=== PATIENT | female | born 2000 | race Hispanic/Latino ===

== ENCOUNTER 2020-01-18 10:34 | Outpatient (CLI) | payer OTHER, SELFPAY ==
--- NOTE | ~2020-01-18 | US_ITS ---
EXAMINATION: US OB /maternal detail DATE: 01/18/2020 12:08 INDICATION: anatomic survey. TECHNIQUE: Real-time ultrasound of the pelvis was performed. COMPARISON: None. FINDINGS: There is a single living fetus in breech presentation. The placenta is posterior, 5.1 m from the cer vix. heart rate is 149 beats per minute (bpm). The amniotic fluid volume is subjectively normal . The following biometric data were obtained: Biparietal diameter (BPD): 4.5 cm; head circumference (HC): 18.3 cm; abdominal circumference (AC): 15 .2 cm; femur length (FL): 3.5 cm. These measurements are discordant with low cephalic index. Estimated weight is 370 g +/- 56 g, which correlates with 43rd percentile when 06/01/20 is used as estimated date of delivery. As single measurements, these parameters are each equal to the following estimated gestational ages: BPD: 19 weeks 4 days. HC: 20 weeks 5 days. AC: 20 weeks 3 days. FL: 21 weeks 1 days. estimated gestational age based solely on measurements from this exam is 20 weeks 3 days +/- 1 weeks 3 days. There are multiple bilateral choroid plexus cysts. The cerebral ventricles, cerebellum, cisterna magn a, nuchal fold, and visualized portions of the spine are normal. The heart is normal. The diaphragm, stomach, kidneys, and bladder are normal. There are two umbilical arteries to yield a 3-vessel cord. The cord insertion is normal. IMPRESSION: 1. Single living fetus in breech presentation. 2. Estimated weight is 370 g +/- 56 g, which correlates with 43rd percentile when 06/01/20 is used as estimated date of delivery. 3. Low cephalic index. 4. Choroid plexus cysts. Reviewed, dictated and finalized at location A. IMPRESSION: 1. Single living fetus in breech presentation. 2. Estimated weight is 370 g +/- 56 g, which correlates with 43rd percen tile when 06/01/20 is used as estimated date of delivery. 3. Low cephalic index. 4. Choroid plexus cysts.
== END 2020-01-18 10:35 | disposition home or self-care (01) ==
PROVIDERS: Visit Provider Obstetrics & Gynecology
DX: Z34.92 Encounter for supervision of normal pregnancy, unspecified, second trimester (principal); Z3A.20 20 weeks gestation of pregnancy
CPT/HCPCS: 76805

== ENCOUNTER 2020-05-25 05:52 | Inpatient (IN) | payer OTHER, SELFPAY ==
--- NOTE | 2020-05-24 21:16 | PM.IMHP ---
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 I explained her condition procedure risks she understands accepts and agrees to proceed Pitocin per protocol Review of Systems Review of Systems: All systems reviewed & are unremarkable except as noted in HPI and below Constitutional: Constitutional: Reports no additional constitutional complaints Eyes: Eyes: Reports no additional eye complaints ENT: Reports system reviewed and no additional complaints, except as documented Cardiovascular: Cardiovascular: Reports no additional cardiovascular complaints Respiratory: Respiratory: Reports no additional respiratory complaints Gastrointestinal: Gastrointestinal: Reports no additional gastrointestinal complaints Genitourinary: Genitourinary: Reports no additional female genitourinary complaints Musculoskeletal: Musculoskeletal: Reports no additional musculoskeletal complaints Integumentary/Breasts: Skin/Breast: Reports system reviewed and no additional complaints, except as docu Neurologic: Reports system reviewed and no additional complaints, except as documented Psychiatric: Psychiatric: Reports no additional psychiatric complaints Endocrine: Endocrine: Reports no additional endocrine complaints Hematologic/Lymphatic: Hematologic/Lymphatic: Reports no additional hematologic/lymphatic complaints Allergic/Immunologic: Allergic/Immunologic: Reports no additional allergic/immunologic complaints [facility] Past Medical History Medical History (Updated 05/24/20 @ 21:26 by Diego Medina MD) GBS carrier Homozygous MTHFR mutation [id number] Family History Family History (Updated 05/09/20 @ 14:34 by Shasha Arenas RN) Other Unknown family medical history Social History Social History (Updated 05/24/20 @ 21:22 by Diego Medina MD) Smoking status: Never smoker Second hand tobacco smoke exposure: No Alcohol intake: never Substance use: never Living arrangements: with family Occupation/Education: student Gender identity (if verbalized by the patient): Female Sexual Orientation (if Verbalized by the Patient): Straight or Heterosexual Spiritual care concerns: No Agree to blood products: Yes Meds Home Medications and Allergies Home Medications Medication Instructions Recorded Confirmed Type aspirin [Aspirin Low Dose] 81 mg PO DAILY 05/09/20 05/09/20 History calcium carbonate-vitamin D3 1 tablet PO DAILY 05/09/20 05/09/20 History [Calcium 600 + D(3)] prenat.vits,felicia,fiv-zwdn-izabx 1 tablet PO DAILY 05/09/20 05/09/20 History [ #2] progesterone micronized 400 mg PO DAILY 05/09/20 05/09/20 History Allergies Allergy/AdvReac Type Severity Reaction Status Date / Time No Known Allergies Allergy Verified 05/09/20 14:30 Exam Const: General: cooperative, healthy appearing, comfortable, no acute distress, well developed, alert, awake and Physically active Nutritional Appearance: average body habitus and well nourished Orientation/consciousness: patient oriented x3 Limitations: no limitations HENMT: Head: normal to inspection Eyes: General: appearance normal, both eyes and all related structures Neck: Neck: normal visual inspection and full ROM Chest: Chest palpation & inspection: normal inspection of the chest Breast/axilla inspection: normal inspection of the breasts Resp: Effort & Inspection: normal respiratory effort Auscultation: clear to auscultation bilaterally Cardio: Palpation: normal PMI Rate: regular rate Rhythm: regular rhythm GI: Inspection: normal to inspection GI Palp: Yes Soft to palpation : External Female Exam: normal external appearance Back/Spine/Pelvis: Back: no CVA tenderness Cervical S
--- NOTE | 2020-05-24 21:27 | WPDHPUPDATE1 ---
History and Physical Update Update Date/Time: 05/24/20 21:27 History and Physical has been reviewed, including an updated exam of the patient. There are NO changes in the patient's condition. Risks, benefits, and alternatives have been discussed and questions answered. Patient agrees to proceed with procedure. 19-year-old 39 weeks in for elective induction of labor with Pitocin GBS positive antibiotic prophylaxis will be given
--- NOTE | 2020-05-24 21:28 | WPDOBADMIT ---
Obstetrics - Admit Note Admission Note: record reviewed. No pertinent additions to the history and/or any subsequent changes in the physical findings that are not consistent with the expected course of the were found. Additions to the history and/or subsequent changes in the physical findings follow. None. 19-year-old female 2 para 1 at 39 weeks history of MTHFR homozygous and group B strep carrier in for elective induction of labor oxytocin per protocol informed consent obtained she understands maternal or indications for delivery with risk involved including but not limited to bleeding infection injury to bladder bowel baby pelvic vessels DVT pneumonia with infections and retracted UTI the risk of anesthesia she understands accepts and agrees to proceed
[2020-05-25] VITALS (66 sets, daily range): BP systolic 83–140; BP diastolic 47–108; PULSE 25–246; RESP 14–16; TEMP 36.5–37.1; O2SAT 79–100; BMI 29.4
[2020-05-25 06:31] LABS: Basophils Percent Auto 0.2 % (0.2-1.2); Eosinophils Percent Auto 0.5 % (0-4.4); Hematocrit 40.4 % (37.0-47.0); Hemoglobin 13.3 g/dL (12.0-15.0); Immature Granulocyte Absolute 0.06 K/mm3 (0.00-0.031); Immature Granulocyte Percent A 0.7 % (0-0.5); Lymphocytes Percent Auto 23.7 % (18.3-44.2); Mean Corpuscular HGB Conc 32.9 g/dl (32-36); Mean Corpuscular Hemoglobin 31.4 pg (26-34); Mean Corpuscular Volume 95.5 fl (80-100); Monocytes Absolute Auto 0.7 K/mm3 (0.1-0.6); Monocytes Percent Auto 7.7 % (2.6-8.5); Neutrophils Absolute Auto 5.7 K/mm3 (1.3-6.7); Neutrophils Percent Auto 67.2 % (45.5-73.1); Platelet Count Result 136 k/mm3 (150-375); Red Blood Count 4.23 M/mm3 (4.2-5.4); Red Cell Distribution Width 13.1 % (11.5-14.5); White Blood Count 8.4 K/mm3 (4.5-10.0)
[2020-05-25] MEDS: LACTATED RINGERS 1,000 ML 125 ML IV CONT ×2 (06:35→08:59)
[2020-05-25] MEDS: OXYTOCIN 30 UNITS/NS 500 ML 30 UNITS/500 ML BAG IV CONT (06:36)
[2020-05-25] MEDS: AMPICILLIN 2 GM/NS 100 ML 2 GM/100 ML BAG IVPB (06:36)
--- NOTE | 2020-05-25 06:39 | WPDANESEPP ---
Anes - Eval Pre Procedure Procedure: Labor epidural Date/Time: 05/25/20 06:39 Surgeon: Adam Preop Diagnosis: pain during labor Pre Op Diagnosis: Induction of Labor Patient Data Age: 19 Gender: F Height: Weight: Last Vital Signs Pulse 86 05/25/20 06:30 BP 113/71 05/25/20 06:30 Allergies Allergy/AdvReac Type Severity Reaction Status Date / Time No Known Allergies Allergy Verified 05/09/20 14:30 Home Medications Medication Instructions Recorded Confirmed Type aspirin [Aspirin Low Dose] 81 mg PO DAILY 05/09/20 05/09/20 History calcium carbonate-vitamin D3 1 tablet PO DAILY 05/09/20 05/09/20 History [Calcium 600 + D(3)] prenat.vits,felicia,exd-qwld-byzdc 1 tablet PO DAILY 05/09/20 05/09/20 History [ #2] progesterone micronized 400 mg PO DAILY 05/09/20 05/09/20 History Laboratory Tests 05/25/20 05/25/20 06:25 06:25 WBC 8.4 K/mm3 K/mm3 (4.5-10.0) RBC 4.23 M/mm3 M/mm3 (4.2-5.4) Hgb 13.3 g/dL g/dL (12.0-15.0) Hct 40.4 % % (37.0-47.0) MCV 95.5 fl fl (80-100) MCH 31.4 pg pg (26-34) MCHC 32.9 g/dl g/dl (32-36) RDW 13.1 % % (11.5-14.5) Plt Count 136 k/mm3 L k/mm3 (150-375) MPV 12.0 fl H fl (7.4-10.4) Immature Gran % (Auto) 0.7 % H % (0-0.5) Neut % (Auto) 67.2 % % (45.5-73.1) Lymph % (Auto) 23.7 % % (18.3-44.2) [place] % (Auto) 7.7 % % (2.6-8.5) Eos % (Auto) 0.5 % % (0-4.4) Baso % (Auto) 0.2 % % (0.2-1.2) Lymph # (Auto) 2.00 K/mm3 K/mm3 (0.9-3.2) [place] # (Auto) 0.7 K/mm3 H K/mm3 (0.1-0.6) Eos # (Auto) 0.0 K/mm3 K/mm3 (0-0.3) Baso # (Auto) 0.0 K/mm3 K/mm3 (0.0-0.1) Abs Immat Gran (auto) 0.06 K/mm3 H K/mm3 (0.00-0.031) Absolute Neuts (auto) 5.7 K/mm3 K/mm3 (1.3-6.7) Absolute Nucleated RBC 0.0 K/mm3 K/mm3 (0.0-0.012) Nucleated RBC % 0.0 % % (0.0-0.2) RPR Pending Patient hx anesthesia problems: none Family hx anesthesia problems: none [facility] Past Medical History Medical History (Updated 05/24/20 @ 21:26 by Diego Medina MD) GBS carrier Homozygous MTHFR mutation [id number] Family History Family History (Updated 05/09/20 @ 14:34 by Shasha Arenas RN) Other Unknown family medical history Social History Social History (Updated 05/24/20 @ 21:22 by Diego Medina MD) Smoking status: Never smoker Second hand tobacco smoke exposure: No Alcohol intake: never Substance use: never Living arrangements: with family Occupation/Education: student Gender identity (if verbalized by the patient): Female Sexual Orientation (if Verbalized by the Patient): Straight or Heterosexual Spiritual care concerns: No Agree to blood products: Yes Exam Day of Procedure 05/25/20 06:39
--- NOTE | 2020-05-25 06:43 | LDADM ---
This patient, Guillermina Salgado, was admitted to Labor/Delivery/Recovery 103 on 05/25/20 at 05:52. Plans for labor, pain management and were discussed with patient. Patient/family oriented to hospital policies and general routines including ID bracelet, bed and alarms, visiting hours, pain management, procedures, bathroom and other care routines, personal items, smoking policy, room service/diet and guest tray routines, infant security routines, and visiting hours. Patient/Family are encouraged to report perceived risks to care and to ask questions if they do not understand what they are told or what they should do. See OBIX for further documentation.
[2020-05-25 10:29] LABS: Amphetamine Screen Urine Negative (Negative); Barbiturate Screen Urine Negative (Negative); Benzodiazepines Screen Urine Negative (Negative); Cannabinoid Screen Urine Positive (Negative); Cocaine Screen Urine Negative (Negative); Methadone Screen Urine Negative (Negative); Opiate Screen Urine Negative (Negative); Phencyclidine Screen Urine Negative (Negative)
[2020-05-25] MEDS: AMPICILLIN 1 GM/NS 50 ML 1 GM/50 ML BAG IVPB (10:37)
--- NOTE | 2020-05-25 12:02 | PM.OBPNLAB ---
Pain Control Date/time seen: 05/25/20 0945 Pain control: epidural Pelvic Exam Dilation (cm): 5 Effacement (%): 100 station: -2 Amniotic membrane status: Bulging Contractions Monitor mode: External Contraction frequency: 2 Contraction duration: 45 Contraction pattern: Regular Contraction phase: Contraction Contraction intensity: Strong/Firm Status status: Category l Assessment and Plan Pitocin rate (mU/min): 8 Assessment: active labor and induction ongoing Plan: continuous present management
--- NOTE | 2020-05-25 12:03 | PM.OBPNLAB ---
Pain Control Date/time seen: 05/25/20 11:08 Pain control: tolerating well and epidural Pelvic Exam Dilation (cm): 10 Effacement (%): 100 station: 0 Amniotic membrane status: Bulging Contractions Monitor mode: External Contraction frequency: 2 Contraction pattern: Regular Contraction phase: Contraction Contraction intensity: Strong/Firm Status status: Category l Assessment and Plan Pitocin rate (mU/min): 8 Assessment: active labor Plan: continuous present management
--- NOTE | 2020-05-25 12:04 | PM.OBPRVD ---
OB - Delivery Note Procedure Delivery date: 05/25/20 events: Labor Induction Induction method: per pitocin protocol Delivery augmentation: rupture of membranes Delivery monitor: external FHT and external uterine Route of delivery: vacuum extraction (One application in the green zone 1 contraction) Indication for instrumentation: nonreassuring FHR tracing Episiotomy description: None Laceration Description: None Specimen: Yes ( placenta) Estimated blood loss (mL): 50 Anesthesia type: Epidural Disposition: floor Complications: none Narrative: patient completely dilated with repetitive severe variable decelerations and bulging bag of water +2 station. Amniotic fluid clear upon rupture of membranes, maternal effort for pushing poor. Kiwi vacuum extraction performed 1 pull green zone with 1 contraction assisting a normal spontaneous vertex vaginal delivery with vacuum extraction over an intact perineum of a viable male infant with nuchal cord x1 tight infant delivered and placed onto the maternal abdomen after the nuchal cord reduced outside of the vagina and the cord was then clamped and cut and the was placed on the maternal abdomen where the nose and throat were bulb suction there was spontaneous respirations and cry cord was accessed for cord blood gases and cord blood and then Pitocin wide open the placenta was then delivered intact with a three-vessel cord the uterus contracted well with Pitocin given intravenously blood and clots removed from the intrauterine cavity there was no episiotomy cut stairs or lacerations only small vulvar skid ruffin. Patient tolerated the procedure well Baby Date of : 05/25/20 Time of : 11:51 Weeks of gestation at delivery: 39 gender: Male (Pop) Weight (pounds): 6 Weight (ounces): 11 presentation: vertex position: Left Occiput Anterior Placenta delivery description: Spontaneous and Normal Configuration cord vessel description: 3 Vessels, Nuchal Cord and Tight score one minute: 9 score five minutes: 9 Narrative: normal spontaneous respirations and cry Nose and Throat bulb suction with baby on maternal abdomen assessed by the nursery nurse in attendance scores 9 and 9 at 1 and 5 minutes baby's weight 6 lb 11 oz 30 40 g 20 in normal transition stable condition placenta intact three-vessel cord nuchal cord x1 with severe but variables required the kiwi vacuum assistance with 1 pull no complication no gross abnormalities in the examination infant taken to the nursery in stable condition
[2020-05-25] MEDS: OXYTOCIN 30 UNITS/NS 500 ML 30 UNITS/500 ML BAG 125 UNITS IV CONT (12:21)
[2020-05-26 05:43] LABS: Hematocrit 37.1 % (37.0-47.0); Hemoglobin 12.2 g/dL (12.0-15.0)
[2020-05-26 07:35] VITALS: BP 106/74; PULSE 52; RESP 18; TEMP 36.8; O2SAT 99
[2020-05-26] MEDS: WITCH HAZEL 40 PADS 1 PAD TOPICAL (08:10)
[2020-05-26] MEDS: BENZOCAINE 20% AER SPR (*SP) 56 GM CAN 1 SPRAY TOPICAL (08:10)
[2020-05-26] MEDS: DOCUSATE SODIUM 100 MG CAPSULE PO (08:11)
[2020-05-26] MEDS: IBUPROFEN 600 MG TABLET PO ×2 (08:11→15:46)
--- NOTE | 2020-05-26 08:29 | WPDANLDPN2 ---
Anes-Prog Note L&D Date/Time: 05/26/20 08:29 Comfortable throughout: labor and delivery Neuraxial method: epidural Epidural/Spinal procedure site: clean & non-tender Neuro status: Neuro function grossly intact. Cardiovascular status: normal Respiratory status: normal Airway patency: baseline Mental status: baseline Post-Op hydration status: normal Vital Signs: Last Vital Signs Temp 36.6 C 05/25/20 20:30 Pulse 67 05/25/20 20:30 Resp 16 05/25/20 20:30 BP 90/57 L 05/25/20 20:30 Pulse Ox 99 05/25/20 20:30 Pain score (VAS): 3 Post-procedural complaints: none Patient feedback: Patient satisfied with anesthetic care. Other findings: mild posterior neck cramping, using heating pad
[2020-05-26 09:49] LABS: Rapid Plasma Reagin Non-Reactive (NonReactive)
--- NOTE | 2020-05-26 12:21 | PCCCNOTE ---
Care Coordination met with Pt. and FOB (Dale Wright) this morning to discuss discharge planning. Pt.'s current discharge plan is to return home with her significant other and other child. Pt. states that she is independent with ADLs and ambulation. Pt. states they have everything they need to safely and successfully bring baby home. Pt. confirms they have a car seat available for pt.'s RN to examine. Pt. is current with [facility] and states she will bottle feed baby. Pt. was informed that she tested positive for Marijuana at time of admission. She states that she smoked prior to getting and continued to smoke to help with her appetite during the . Pt. was also informed that she tested positive for Cocaine during on her visits. Pt. denies Cocaine use and states she is unsure why she tested positive. Pt. was negative for Cocaine during hospitalization. Baby's urine was not tested and his meconium is pending. Pt. and FOB were informed that CC will be reporting the drug use to DCFS. Pt. had no questions or concerns regarding CC reporting. CC spoke with Lucrecia Mcghee with [facility] who states they will take this as information for now. Pt.'s intake number is [phone], CC has been instructed to call if baby's meconium comes back positive for Marijuana or Cocaine. No further need for CC services at this time.
[2020-05-26] MEDS: HYDROcodone/acetaminophen (*CRX) 5-325 MG TABLET 1 TAB PO ×2 (15:45→18:51)
--- NOTE | 2020-05-26 19:12 | PM.OBPNVD ---
OB - PN: Subj Subjective Date/time seen: 05/26/20 19:12 Interval history: status post normal spontaneous vaginal delivery 05/25/2020 of a viable male Patient comments: no complaints, pain well controlled and other ( Neck pain) [place] baby status: doing well and bottle feeding well [place] feeding status: exclusively bottle feeding OB - PN: Obj Data Labs CBC & Chem 7: 05/26/20 05:08 Labs: Laboratory Results - last 24 hr 05/25/20 05/26/20 06:25 05:08 Hgb 12.2 Hct 37.1 RPR Non-reactive OB - PN A/P Assessment and Plan (1) Term delivered: Code(s): O80 - Encounter for full-term uncomplicated delivery Status: Acute (2) Homozygous MTHFR mutation [id number]: Code(s): E72.12 - Methylenetetrahydrofolate reductase deficiency Status: Acute (3) GBS carrier: Code(s): Z22.330 - Carrier of Group B streptococcus Status: Acute Plan day: 1 Plan: routine care, discharge home and other ( follow-up in 3 weeks) Time Spent With Patient Time: Total time spent is greater than 50% in coordination of care (as documented) at patient's floor/unit and/or counseling patient: Time with patient: less than 15 minutes Review of Systems Review of Systems: All systems reviewed & are unremarkable except as noted in HPI and below Exam Const: General: cooperative, healthy appearing, comfortable, no acute distress, well developed, alert, awake and Physically active Nutritional Appearance: average body habitus and well nourished Orientation/consciousness: oriented to person Limitations: no limitations HENMT: Head: normal to inspection Eyes: General: appearance normal, both eyes and all related structures Neck: Neck: normal visual inspection and full ROM Chest: Chest palpation & inspection: normal inspection of the chest Breast/axilla inspection: normal inspection of the breasts Resp: Effort & Inspection: normal respiratory effort Auscultation: clear to auscultation bilaterally Cardio: Rate: regular rate Rhythm: regular rhythm GI: Inspection: normal to inspection : External Female Exam: normal external appearance Bimanual exam- vagina & uterus: non-tender Back/Spine/Pelvis: Back: no CVA tenderness Skin: General skin exam: normal color Neuro: General: patient oriented x3, gait normal and moves all extremities Extrem: General: normal to inspection and full ROM Psych: Appearance: grossly normal Mental Status: mental status grossly normal Speech and movement: Normal speech and movement present Affect: normal affect Attitude: cooperative Thought process: Normal thought process present Thought content: Yes Normal thought content present Insight: Good insight present (Psych) Judgement: Good judgement present (Psych)
--- NOTE | 2020-05-26 19:16 | PM.OBDSVD ---
DS: Admitting Diagnosis Admitting Diagnosis Admitting Diagnosis: Induction of Labor term MTHFR homozygous mutation GBS carrier DS: Discharge Diagnosis Discharge Diagnosis (1) Term delivered: Code(s): O80 - Encounter for full-term uncomplicated delivery Status: Acute (2) GBS carrier: Code(s): Z22.330 - Carrier of Group B streptococcus Status: Acute (3) Homozygous MTHFR mutation [id number]: Code(s): E72.12 - Methylenetetrahydrofolate reductase deficiency Status: Acute OB - DS: Summary Hospital Course Time spent discussing smoking cessation with patient: 3 to 10 minutes OB Procedures : Ultrasound OB Procedures Intrapartum: Vacuum extraction and GBS prophylaxis OB Procedures: : None Peripartum Data Infant Delivery Method: Assisted Delivery ( kiwi vacuum extraction) Laceration Description: None Episiotomy description: None complications: none 1: Gender: Male (Pop) Disposition of : home Status at Discharge Functional status at discharge: independent ambulation Overall status at discharge: patient is back to baseline Time Spent with Patient Time attestation: Total time spent providing and/or coordinating discharge services: Time spent: Less than 30 minutes Exam Const: General: cooperative, healthy appearing, comfortable, no acute distress, well developed, alert, awake and Physically active Nutritional Appearance: average body habitus and well nourished Orientation/consciousness: patient oriented x3 Limitations: no limitations HENMT: Head: normal to inspection Eyes: General: appearance normal, both eyes and all related structures Neck: Neck: normal visual inspection and full ROM Chest: Chest palpation & inspection: normal inspection of the chest Breast/axilla inspection: normal inspection of the breasts Breast/axilla palpation: normal palpation of the breasts Resp: Effort & Inspection: normal respiratory effort Auscultation: clear to auscultation bilaterally Percussion: percussion normal Cardio: Palpation: normal PMI Rate: regular rate Rhythm: regular rhythm Heart sounds: S1 normal heart sound present and S2 normal heart sound present GI: Inspection: normal to inspection GI Palp: Yes Soft to palpation Percussion: Yes normal to percussion Auscultation: normal bowel sounds : External Female Exam: normal external appearance Bimanual exam- vagina & uterus: non-tender Back/Spine/Pelvis: Back: no CVA tenderness Cervical Spine: normal cervical lordosis Skin: General skin exam: normal color and no rashes or lesions noted Neuro: General: patient oriented x3, gait normal, tone normal, Normal light touch and pain sensation, no meningeal signs, no focal motor deficits and CN's II-XI intact bilaterally Extrem: General: normal to inspection and full ROM Psych: Appearance: grossly normal Mental Status: mental status grossly normal Speech and movement: Normal speech and movement present Affect: normal affect Attitude: cooperative Thought process: Normal thought process present Thought content: Yes Normal thought content present Insight: Good insight present (Psych) Judgement: Good judgement present (Psych) DS: Data Data Completed and Pending Labs on day of discharge: Labs from last 24 hours 05/25/20 05/25/20 05/25/20 06:25 06:25 06:25 WBC RBC Hgb Hct MCV MCH MCHC RDW Plt Count MPV Immature Gran % (Auto) Neut % (Auto) Lymph % (Auto) [place] % (Auto) Eos % (Auto) Baso % (Auto) Lymph # (Auto) [place] # (Auto) Eos # (Auto) Baso # (Auto) Abs Immat Gran (auto) Absolute Neuts (auto) Absolute Nucleated RBC Nucleated RBC % Urine Opiates Screen Negative Urine Methadone Screen Negative Ur Barbiturates Screen Negative Ur Phencyclidine Scrn Negative Ur Amphetamine Screen Negative U Benzodiazepines Scr
[2020-05-28 09:45] VITALS: BP 105/66; PULSE 62; RESP 14; TEMP 37.2; O2SAT 99
== END 2020-05-26 20:15 | disposition home or self-care (01) | DRG 560 ==
LOC: ANHLDR 12:36 → ANHOB2 14:41
PROVIDERS: Admitting Provider Obstetrics & Gynecology; Visit Provider Obstetrics & Gynecology
DX: O62.3 Precipitate labor (principal); O99.284 Endocrine, nutritional and metabolic diseases complicating childbirth; O99.824 Streptococcus B carrier state complicating childbirth; O69.1XX0 Labor and delivery complicated by cord around neck, with compression, not applicable or unspecified; E72.12 Methylenetetrahydrofolate reductase deficiency; Z3A.39 39 weeks gestation of pregnancy; Z37.0 Single live birth
CPT/HCPCS: 36415; 80307; 85014; 85018; 85025; 86592; 86850; 86900; 86901; 88307; A9270; J0290; J2590; J2795; J7120

== ENCOUNTER 2020-05-28 10:06 | Emergency (ER) | payer OTHER, SELFPAY ==
[2020-05-28 10:10] VITALS: BP 117/73; PULSE 68; RESP 18; TEMP 36.9; O2SAT 99
--- NOTE | 2020-05-28 12:15 | ED.NECK ---
HPI - Neck Pain/Injury General Chief Complaint: Neck Pain/Injury Stated Complaint: neck pain/WOOD Time Seen by Provider: 05/28/20 11:18 Source: patient Mode of arrival: ambulatory Limitations: no limitations History of Present Illness HPI Narrative: This patient is a 19 year old female who presents for evaluation of neck pain. She states that she had an uncomplicated vaginal delivery with an epidural on 05/25/20. She woke up on 05/26/20 with bilateral neck pain. Her pain has been constant and it is worsened. Her pain is worse with movement of her neck. She has been taking ibuprofen for her pain. She reports her neck pain is causing a headache. She denies nausea, vomiting, fever, chills, sore throat. Related Data Allergies Allergy/AdvReac Type Severity Reaction Status Date / Time No Known Allergies Allergy Verified 05/28/20 10:13 Review of Systems Review of Systems: All systems reviewed & are unremarkable except as noted in HPI and below Constitutional: Constitutional: Denies chills and Denies fever(s) Eyes: Eyes: Denies change in vision ENT: Denies nasal congestion Cardiovascular: Cardiovascular: Denies chest pain Respiratory: Respiratory: Denies cough and Denies dyspnea Gastrointestinal: Gastrointestinal: Denies abdominal pain and Denies vomiting Neurologic: Reports headache(s) [facility] Past Medical History Medical History (Updated 05/28/20 @ 14:25 by Bernice Cornell MD) 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 Family History Family History (Updated 05/09/20 @ 14:34 by Shasha Arenas RN) Other Unknown family medical history Social History Social History (Updated 05/24/20 @ 21:22 by Diego Medina MD) Smoking status: Never smoker Second hand tobacco smoke exposure: No Alcohol intake: never Substance use: never Gender identity (if verbalized by the patient): Female Spiritual care concerns: No Agree to blood products: Yes Exam Const: General: no acute distress and alert Orientation/consciousness: patient oriented x3 HENMT: Head: normocephalic and atraumatic General nose exam: No nasal polyps present Face and sinus: face symmetric Mouth: Yes Normal oral and palatal mucosa present, Yes lip normal, Yes oropharynx normal and Yes moist mucous membranes Teeth and gingiva: dentition normal and gingiva normal Throat: posterior oropharynx normal, tonsils normal and uvula midline Eyes: Pupils: Equal, round and reactive pupils present EOM: EOMs intact bilaterally Neck: Neck: normal visual inspection Chest: Chest palpation & inspection: normal inspection of the chest Resp: Effort & Inspection: normal respiratory effort, no retractions and no use of accessory muscles Auscultation: clear to auscultation bilaterally Cardio: Rate: regular rate Rhythm: regular rhythm Heart sounds: no murmurs GI: GI Palp: Yes Soft to palpation, No Tenderness to palpation present (GI), No Guarding due to palpation present (GI) and No Rigid due to palpation Auscultation: normal bowel sounds Back/Spine/Pelvis: Back: no CVA tenderness Cervical Spine: cervical ROM normal and No Cervical spine tenderness Skin: General skin exam: normal color Rashes: no rashes Neuro: General: patient oriented x3 and moves all extremities Course Reevaluation(s) Reevaluation #1: PAtient reports she feels better and she denies having a headache. She denies any neuro symptoms that suggest need for imaging. Date: 05/28/20 Time: 14:23 Vital Signs Vital signs: Vital Signs Temperature 98.5 F 05/28/20 10:10 Pulse Rate 68 05/28/20 10:10 Respiratory Rate 18 05/28/20 10:10 Blood Pressure 117/73 05/28/20 10:10 Pulse Oximetry 99 05/28/20 10:10 Temperature 98.4 F 05/28/20 14:58 Pulse Rate 54 L 05/28/20 14:58 Respiratory Rate 16 05/28/20 14:58 Blood Pressure 111/78 05/28/20 14:58 Pulse Oximetry 99 05/28/20 14:58 Discharge Plan Discharge Clinical Impression: St
[2020-05-28 12:43] VITALS: BP 120/78; PULSE 65; RESP 16; TEMP 36.2; O2SAT 100
[2020-05-28] MEDS: diazePAM (*CRX) 5 MG TABLET PO (12:50)
[2020-05-28] MEDS: ONDANSETRON HCL ODT 4 MG TABLET PO (12:50)
[2020-05-28] MEDS: KETOROLAC (*BKC) 60 MG/2 ML VIAL IM (12:51)
[2020-05-28 14:58] VITALS: BP 111/78; PULSE 54; RESP 16; TEMP 36.9; O2SAT 99
== END 2020-05-28 15:33 | disposition home or self-care (01) ==
PROVIDERS: Emergency Provider General Practice
DX: O9A.23 Injury, poisoning and certain other consequences of external causes complicating the puerperium (principal); S16.1XXA Strain of muscle, fascia and tendon at neck level, initial encounter; O99.285 Endocrine, nutritional and metabolic diseases complicating the puerperium; E72.12 Methylenetetrahydrofolate reductase deficiency; O99.825 Streptococcus B carrier state complicating the puerperium; X58.XXXA Exposure to other specified factors, initial encounter
CPT/HCPCS: 96372; 99283; A9270; J1885